=== PATIENT | female | born 1975 | race Caucasian/White ===

== ENCOUNTER 2017-06-18 22:11 | Observation (INO) | payer MEDICAID, OTHER ==
[~2017-06-18] VITALS: Ht 165.1 cm; Wt 75.0 kg
[2017-06-18 22:14] VITALS: BP 132/64; PULSE 96; RESP 16; TEMP 98.5; O2SAT 100
[2017-06-18] MEDS ORDERED: PROZ40CA PO (22:36)
[2017-06-18] MEDS ORDERED: BUPR150CR PO (22:36)
[2017-06-18] MEDS ORDERED: VIST50CA PO (22:36)
[2017-06-18] MEDS ORDERED: SODIUM CHLORIDE 0.9% FLUSH 10 ML FLUSH IVF PRN (23:00)
[2017-06-18] MEDS ORDERED: ASPIRIN 81 MG CHEW TAB PO ONE (23:00)
--- NOTE | 2017-06-18 23:15 | RADRPT ---
EXAM DATE/TIME: 06/18/2017 22:53 [place] COMPARISON: No previous studies available for comparison. INDICATIONS : Chest pain and shortness of breath. MEDICAL HISTORY : None. SURGICAL HISTORY : None. ENCOUNTER: Initial ACUITY: 2 days PAIN SCORE: 8/10 LOCATION: Bilateral chest FINDINGS: A single view of the chest demonstrates the lungs to be symmetrically aerated without evidence of mas s, infiltrate or effusion. The cardiomediastinal contours are unremarkable. Osseous structures are intact. CONCLUSION: No acute cardiopulmonary process. Dung Foster MD on June 18, 2017 at 23:14 Board Certified Radiologist. This report was verified electronically.
[2017-06-18 23:25] LABS: AUTOMATED NEUTROPHIL # 2.8 TH/MM3 (1.8-7.7); BASOPHIL % 0.6 % (0.0-2.0); EOSINOPHIL # 0.2 TH/MM3 (0-0.4); EOSINOPHIL % 2.9 % (0.0-4.0); HEMATOCRIT 33.7 % (35.0-46.0); HEMO FLAGS DIFF FINAL; LYMPH % 45.4 % (9.0-44.0); MEAN CELL VOLUME 89.4 FL (80.0-100.0); MEAN CORPUSCULAR HEMOGLOBIN 30.1 PG (27.0-34.0); MEAN CORPUSCULAR HGB CONC 33.6 % (32.0-36.0); MONO % 8.7 % (0.0-8.0); NEUT % 42.4 % (16.0-70.0); PLATELET COUNT 215 TH/MM3 (150-450); RED BLOOD COUNT 3.77 MIL/MM3 (4.00-5.30); RED CELL DISTRIBUTION WIDTH 13.1 % (11.6-17.2); WHITE BLOOD COUNT 6.6 TH/MM3 (4.0-11.0)
[2017-06-18 23:36] LABS: ALKALINE PHOSPHATASE 105 U/L (45-117); TOTAL BILIRUBIN ADULT 0.4 MG/DL (0.2-1.0)
[2017-06-18 23:40] LABS: ALT (GPT) 107 U/L (10-53); ANION GAP 8 MEQ/L (5-15); AST (GOT) 58 U/L (15-37); BICARBONATE 23.9 MEQ/L (21.0-32.0); BLOOD UREA NITROGEN 18 MG/DL (7-18); CHLORIDE 104 MEQ/L (98-107); GLOMERULAR FILTRATION RATE 65 ML/MIN (>89); POTASSIUM 3.9 MEQ/L (3.5-5.1); SODIUM (NA) 136 MEQ/L (136-145)
--- NOTE | 2017-06-18 23:42 | PD ---
HPI Chief Complaint: Chest Pain Time Seen by Provider: 22:39 Travel History International Travel<30 days: No Contact w/Intl Traveler<30days: No Traveled to known affect area: No History of Present Illness HPI This is a 41-year-old female who presents to the emergency department with chest pain. She says that for the past 2 days she's had intermittent left- sided chest pains under her left breast, associated with some tingling in her left arm, shortness of breath and nausea. She says that she has a history of 15 years of cocaine abuse as well as smoking and she is 6 months clean in a sober living house. Her father she says also had bypass surgery at 45. She had some sort of cardiac monitoring when she was that doesn't recall having a recent stress test otherwise. PFSH Past Medical History Anxiety: Yes Depression: Yes Tetanus Vaccination: > 5 Years ?: Not LMP: 06/18/17 : 1 Para: 1 Past Surgical History Other Surgery: Yes (cervical fusion) Family History Family Myocardial Infarction: Yes (father had 6 bypasses) Social History Alcohol Use: No Tobacco Use: No (vapes) Substance Use: No (sober 6 months) Allergies-Medications (Allergen,Severity, Reaction): Coded Allergies: No Known Allergies (Verified Allergy, Unknown, 06/18/17) Reported Meds & Prescriptions Reported Meds & Active Scripts Active Reported Vistaril (Hydroxyzine Pamoate) 50 Mg Cap 50 Mg PO TID Prozac (Fluoxetine HCl) 40 Mg Cap 40 Mg PO DAILY Wellbutrin SR 12 HR (Bupropion HCl) 150 Mg Tab 300 Mg PO DAILY Review of Systems Except as stated in HPI: all other systems reviewed are Neg Physical Exam Narrative GENERAL:Well appearing, no acute distress SKIN: Focused skin assessment warm and dry. HEAD: Atraumatic. Normocephalic. EYES: Pupils equal and round. No injection or drainage. ENT: Moist mucous membranes NECK: Trachea midline. CARDIOVASCULAR: Regular rate and rhythm. 3/6 systolic murmur noted over the left sternal border. RESPIRATORY: Clear to auscultation. Breath sounds equal bilaterally. GASTROINTESTINAL: Abdomen soft, non-tender, nondistended. MUSCULOSKELETAL: No obvious deformities. NEUROLOGICAL: Awake and alert. No obvious cranial nerve deficits. Moving all extremities. PSYCHIATRIC: Appropriate mood and affect; insight and judgment normal. Data Data Last Documented VS Vital Signs Date Time Temp Pulse Resp B/P (MAP) Pulse Ox O2 Delivery O2 Flow Rate FiO2 06/18/17 22:14 98.5 96 16 132/64 (86) 100 Room Air Orders Orders Electrocardiogram (06/18/17 22:50) Complete Blood Count With Diff (06/18/17 22:50) Comprehensive Metabolic Panel (06/18/17 22:50) Troponin I (06/18/17 22:50) Chest, Single Ap (06/18/17 22:50) Ecg Monitoring (06/18/17 22:50) Bilateral Bp Monitoring (06/18/17 22:50) Iv Access Insert/Monitor (06/18/17 22:50) Oximetry (06/18/17 22:50) Oxygen Administration (06/18/17 22:50) Aspirin Chew (Aspirin Chew) (06/18/17 23:00) Sodium Chloride 0.9% Flush (Ns Flush) (06/18/17 23:00) Ed Urine Pregnancytest Poc (06/18/17 22:50) Admit Order (Ed Use Only) (06/18/17 23:49) Labs Laboratory Tests Test 06/18/17 22:58 White Blood Count 6.6 TH/MM3 Red Blood Count 3.77 MIL/MM3 Hemoglobin 11.3 GM/DL Hematocrit 33.7 % Mean Corpuscular Volume 89.4 FL Mean Corpuscular Hemoglobin 30.1 PG Mean Corpuscular Hemoglobin Concent 33.6 % Red Cell Distribution Width 13.1 % Platelet Count 215 TH/MM3 Mean Platelet Volume 6.9 FL Neutrophils (%) (Auto) 42.4 % Lymphocytes (%) (Auto) 45.4 % Monocytes (%) (Auto) 8.7 % Eosinophils (%) (Auto) 2.9 % Basophils (%) (Auto) 0.6 % Neutrophils # (Auto) 2.8 TH/MM3 Lymphocytes # (Auto) 3.0 TH/MM3 Monocytes # (Auto) 0.6 TH/MM3 Eosinophils # (Auto) 0.2 TH/MM3 Basophils # (Auto) 0.0 TH/MM3 CBC Comment DIFF FINAL Differential Comment Blood Urea Nitrogen 18 MG/DL Creatinine 0.96 MG/DL Random Glucose 85 MG/DL Total Protein 6.7 GM/DL Albumin 3.4 GM/DL Calcium Level 7.8 MG/DL Alkaline Phosphatase 105 U/L Aspartate Amino Transf (AST/SGOT) 58 U/L Alanine Aminotransferase (ALT/SGPT) 107 U/L Total Bilirubin 0.4 MG/DL Sodium Level 136 MEQ/L Potassium Level 3.9 MEQ/L Chloride Level 104 MEQ/L Carbon Dioxide Level 23.9 MEQ/L Anion Gap 8 MEQ/L Estimat Glomerular Filtration Rate 65 ML/MIN Troponin I LESS THAN 0.02 NG/ML MDM Medical Decision Making Medical Screen Exam Complete: Yes Emergency Medical Condition: Yes Interpretation(s) Afebrile, mild tachycardia, normotensive Mild anemia Mild transaminitis Troponin is normal Chest x-ray reassuring Differential Diagnosis Acute coronary syndrome, cocaine chest pain, pericarditis, aortic dissection, panic attack Narrative Course This is a 41-year-old female who presents to the emergency department with chest discomfort this been going on for 2 days associated with some visceral symptoms including shortness of breath and nausea. She has a long-standing history of cocaine abuse and has a significant family history of heart disease with her father having had a bypass at the age of 45. The patient was placed on a monitor and an IV was established. EKG is nonischemic. Labs are obtained which were reassuring. Patient was given aspirin. I think she requires risk stratification in the chest pain center. She does have been auto bull systolic murmur on exam which she's never been told about. I doubt this is related to her chest pain. I advised her that she likely should follow with a home care physical therapist anyway given her father's significant history, and she could obtain an echo as an outpatient regarding this murmur. Diagnosis Primary Impression: Chest pain Qualified Codes: R07.9 - Chest pain, unspecified Admitting Information Admitting Physician Requests: Observation Adela Solorio MD Jun 18, 2017 23:42
[2017-06-18 23:58] VITALS: BP 106/59; PULSE 88; RESP 16; O2SAT 100
[2017-06-19] MEDS: SODIUM CHLORIDE 0.9% FLUSH 10 ML FLUSH IV FLUSH SCH ×2 (02:00→09:10)
[2017-06-19] MEDS ORDERED: SODIUM CHLORIDE 0.9% FLUSH 10 ML FLUSH IV FLUSH PRN (02:00)
[2017-06-19 02:22] VITALS: O2SAT 98
[2017-06-19 03:05] VITALS: PULSE 82
[2017-06-19 04:54] VITALS: BP 96/60; PULSE 85; RESP 18; TEMP 98; O2SAT 99
[2017-06-19 07:47] VITALS: BP 112/64; PULSE 79; RESP 16; TEMP 98.7; O2SAT 100
[2017-06-19 09:00] VITALS: PULSE 87
[2017-06-19] MEDS ORDERED: FAMOTIDINE 20 MG TAB PO ONE (09:15)
--- NOTE | 2017-06-19 09:15 | HHI.HP ---
HPI Primary Care Physician No Primary Care Physician Chief Complaint Chest pain History of Present Illness This is a 41-year-old female that presents to ED with a complaint of 2 days of intermittent left-sided chest discomfort lasting 15-20 minutes at a time. She is found nothing to bring on the discomfort. She times has been short of breath and nauseous. No diaphoresis. She describes as a sharp pain. Has not had this before. Denies recent illness. Denies fevers or chills. States she has had heartburn but it has not changed recently. She takes occasional Tums for that. States this does not feel like her heartburn. States that her left breast also is tender to push on it but does not feel the same discomfort that brought her to the ED. Not recall prior stress test. Review of Systems General: Patient denies fevers, chills recent, and recent travel HEENT: Patient denies headache, sore throat, difficulty swallowing. Cardiovascular: Has the chest discomfort as mentioned above. Denies sensation of heart beating rapidly or irregularly. No syncope. Denies diaphoresis.. Respiratory: She was short of breath. Denies of breath or inspirational chest discomfort. Denies coughing wheezing or hemoptysis. GI: Occasional nausea. Patient denies vomiting, diarrhea, abdominal pain, bloody stools. Musculoskeletal: Patient denies joint pain or edema. Denies calf pain or edema. Neurovascular: Patient denies numbness, tingling, weakness in extremities. Denies headache. Endocrine: Denies polyuria and polydipsia. Hematologic: Denies easy bruising. Skin: Denies rash or itching. Past Family Social History Allergies: Coded Allergies: No Known Allergies (Verified Allergy, Unknown, 06/18/17) Past Medical History Depression and anxiety. Past history of polysubstance abuse and tobacco abuse but states she has been sober and has not smoke cigarettes in about 6 months. Denies hypertension, hyperlipidemia, diabetes, and CAD. Past Surgical History Cervical fusion at age 29. Reported Medications Reported Meds & Active Scripts Active Reported Vistaril (Hydroxyzine Pamoate) 50 Mg Cap 50 Mg PO TID Prozac (Fluoxetine HCl) 40 Mg Cap 40 Mg PO DAILY Wellbutrin SR 12 HR (Bupropion HCl) 150 Mg Tab 300 Mg PO DAILY Active Ordered Medications Current Medications Medications (Trade) Dose Ordered Sig/Mitzi Route Start Time Stop Time Status Last Admin (NS Flush) 2 ml UNSCH PRN IV FLUSH 06/19/17 02:00 (NS Flush) 2 ml BID IV FLUSH 06/19/17 02:00 Family History States her father had a CABG at age 45. Social History Patient quit smoking about 5 months ago. Prior that she smoked between one half to one pack of cigarettes daily for 20 years. Denies alcohol. States she still abuse cocaine, opiates, marijuana but has been sober about 6 months. Physical Exam Vital Signs Vital Signs Date Time Temp Pulse Resp B/P (MAP) Pulse Ox O2 Delivery O2 Flow Rate FiO2 06/19/17 07:47 98.7 79 16 112/64 (80) 100 06/19/17 04:54 98.0 85 18 96/60 (72) 99 06/19/17 03:05 82 06/19/17 03:02 06/19/17 02:22 98 06/18/17 23:58 88 16 106/59 (75) 100 Room Air 06/18/17 22:14 98.5 96 16 132/64 (86) 100 Room Air Physical Exam GENERAL: This is a well-nourished, well-developed patient, in no apparent distress. Patient speaks in clear complete sentences. Patient is pleasant. 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 HEENT: Head is atraumatic and normocephalic. Neck is supple without lymphadenopathy and trachea is midline. No JVD or carotid bruits. CARDIOVASCULAR: Regular rate and rhythm without murmurs, gallops, or rubs. RESPIRATORY: Clear to auscultation. Breath sounds equal bilaterally. No wheezes , rales, or rhonchi. Left breast a tender but states it is not similar to the discomfort she has having. Also there is some anterior chest wall discomfort just left of the sternum but states that is not similar discomfort. States her discomfort felt deeper. No use of accessory muscles. GASTROINTESTINAL: Abdomen is nontender, nondistended. Abdomen soft. No obvious pulsatile mass or bruit. No CVA tenderness. Strong femoral pulses bilaterally. Normal bowel sounds in all quadrants. MUSCULOSKELETAL: Patient is moving upper and lower extremities freely. No calf tenderness or edema, no Homans sign. Strong pulses in upper and lower extremities. NEUROLOGICAL: Patient is alert and oriented. Cranial nerves 2-12 are grossly intact. No focal deficits and speech is clear. SKIN: No rash and turgor is normal. Laboratory Laboratory Tests Test 06/18/17 22:58 06/19/17 02:30 06/19/17 05:30 White Blood Count 6.6 Red Blood Count 3.77 Hemoglobin 11.3 Hematocrit 33.7 Mean Corpuscular Volume 89.4 Mean Corpuscular Hemoglobin 30.1 Mean Corpuscular Hemoglobin Concent 33.6 Red Cell Distribution Width 13.1 Platelet Count 215 Mean Platelet Volume 6.9 Neutrophils (%) (Auto) 42.4 Lymphocytes (%) (Auto) 45.4 Monocytes (%) (Auto) 8.7 Eosinophils (%) (Auto) 2.9 Basophils (%) (Auto) 0.6 Neutrophils # (Auto) 2.8 Lymphocytes # (Auto) 3.0 Monocytes # (Auto) 0.6 Eosinophils # (Auto) 0.2 Basophils # (Auto) 0.0 CBC Comment DIFF FINAL Differential Comment Blood Urea Nitrogen 18 Creatinine 0.96 Random Glucose 85 Total Protein 6.7 Albumin 3.4 Calcium Level 7.8 Alkaline Phosphatase 105 Aspartate Amino Transf (AST/SGOT) 58 Alanine Aminotransferase (ALT/SGPT) 107 Total Bilirubin 0.4 Sodium Level 136 Potassium Level 3.9 Chloride Level 104 Carbon Dioxide Level 23.9 Anion Gap 8 Estimat Glomerular Filtration Rate 65 Troponin I LESS THAN 0.02 LESS THAN 0.02 LESS THAN 0.02 Result Diagram: 06/18/17225706/18/172257 Imaging Last 48 hours Impressions Chest X-Ray 06/18/172249 Signed Impressions: Service Date/Time: Sunday, June 18, 2017 22:53 - CONCLUSION: No acute cardiopulmonary process. Dung Foster MD Course EKGs are sinus rhythm without significant ST segment depressions or elevations. Caprini VTE Risk Assessment Caprini VTE Risk Assessment: No/Low Risk (score <= 1) Caprini Risk Assessment Model Point Value = 1 Point Value = 2 Point Value = 3 Point Value = 5 Age 41-60 Minor surgery BMI > 25 kg/m2 Swollen legs Varicose veins or History of unexplained or recurrent spontaneous Oral contraceptives or hormone replacement Sepsis (< 1 month) Serious lung disease, including pneumonia (< 1 month) Abnormal pulmonary function Acute myocardial infarction Congestive heart failure (< 1 month) History of inflammatory bowel disease Medical patient at bed rest Age 61-74 Arthroscopic surgery Major open surgery (> 45 min) Laparoscopic surgery (> 45 min) Malignancy Confined to bed (> 72 hours) Immobilizing plaster cast Central venous access Age >= 75 History of VTE Family history of VTE Factor V Leiden Prothrombin [id number] Lupus anticoagulant Anticardiolipin antibodies Elevated serum homocysteine Heparin-induced thrombocytopenia Other congenital or acquired thrombophilia Stroke (< 1 month) Elective arthroplasty Hip, pelvis, or leg fracture Acute spinal cord injury (< 1 month) Prophylaxis Regimen Total Risk Factor Score Risk Level Prophylaxis Regimen 0-1 Low Early ambulation 2 Moderate Order ONE of the following: *Sequential Compression Device (SCD) *Heparin 5000 units SQ BID 3-4 Higher Order ONE of the following medications: *Heparin 5000 units SQ TID *Enoxaparin/Lovenox 40 mg SQ daily (WT < 150 kg, CrCl > 30 mL/min) *Enoxaparin/Lovenox 30 mg SQ daily (WT < 150 kg, CrCl > 10-29 mL/min) *Enoxaparin/Lovenox 30 mg SQ BID (WT < 150 kg, CrCl > 30 mL/min) AND/OR *Sequential Compression Device (SCD) 5 or more Highest Order ONE of the following medications: *Heparin 5000 units SQ TID (Preferred with Epidurals) *Enoxaparin/Lovenox 40 mg SQ daily (WT < 150 kg, CrCl > 30 mL/min) *Enoxaparin/Lovenox 30 mg SQ daily (WT < 150 kg, CrCl > 10-29 mL/min) *Enoxaparin/Lovenox 30 mg SQ BID (WT < 150 kg, CrCl > 30 mL/min) AND *Sequential Compression Device (SCD) Assessment and Plan Assessment and Plan * Chest pain: Patient has had serial cardiac enzymes and EKGs for ruling out purposes. She will be seen by Dr. Terrell of cardiology in the chest pain center and likely have a Yaw protocol ETT. She'll be discharged home if stress test is nonischemic. Patient should follow-up with outpatient primary care physician. * Depression/anxiety: Continue her medications. Patient is stable at this time. She is agreeable to this plan. Jose Antonio Wiley Jun 19, 2017 09:15
--- NOTE | 2017-06-19 09:54 | HHI.DCPOC ---
Discharge Care Plan Diagnosis: (1) Chest pain Goals to Promote Your Health * To prevent worsening of your condition and complications * To maintain your health at the optimal level Directions to Meet Your Goals Take your medications as prescribed Follow your dietary instruction Follow activity as directed Keep your appointments as scheduled Take your immunizations and boosters as scheduled If your symptoms worsen call your PCP, if no PCP go to Urgent Care Center or Emergency Room Smoking is Dangerous to Your Health. Avoid second hand smoke Call the 24-hour hour crisis hotline for domestic abuse at Jose Antonio Wiley Jun 19, 2017 09:54
--- NOTE | 2017-06-19 10:41 | EKG ---
Date Performed: 06/19/2017 Time Performed: 03:28:23 PTAGE: 41 years EKG: Sinus rhythm POSSIBLE RIGHT VENTRICULAR CONDUCTION DELAY BORDERLINE ECG PREVIOUS TRACING : 06/19/2017 00.00 Since previous tracing, no significant change noted DOCTOR: Wei Terrell Interpretating Date/Time 06/19/2017 10:41:38
--- NOTE | 2017-06-19 11:46 | TR ---
Date Performed: 06/19/2017 Time Performed: 09:28:04 DOCTOR: Wei Terrell DRUG LIST: CLINICAL HISTORY: REASON FOR TEST: Chest pain REASON FOR ENDING: OBSERVATION: CONCLUSION: SHARONDA PROTOCOL. NO CP. TEST STOPPED AFTER EXCEEDING GOAL HR SECONDARY TO SOB AND LEG FATIGUE.Maximum KP=349 % Max HR Achieved=86.0% Maximum EG=411/70 Total Exercise Time=9:01 COMMENTS: Conclusion: Normal treadmill exercise. No evidence of ischemia.
--- NOTE | 2017-06-19 13:48 | EKG ---
Date Performed: 06/19/2017 Time Performed: 00:00:31 PTAGE: 41 years EKG: Sinus rhythm INCOMPLETE RIGHT BUNDLE BRANCH BLOCK BORDERLINE ECG PREVIOUS TRACING : 06/18/2017 22.34 Since previous tracing, no significant change noted DOCTOR: Wei Terrell Interpretating Date/Time 06/19/2017 13:48:00
--- NOTE | 2017-06-19 13:50 | EKG ---
Date Performed: 06/18/2017 Time Performed: 22:34:01 PTAGE: 41 years EKG: INCOMPLETE RIGHT BUNDLE BRANCH BLOCK ABNORMAL RHYTHM ECG NO PREVIOUS TRACING DOCTOR: Wei Terrell Interpretating Date/Time 06/19/2017 13:48:58
--- NOTE | 2017-06-19 13:51 | EKG ---
Date Performed: 06/19/2017 Time Performed: 05:59:03 PTAGE: 41 years EKG: Sinus rhythm INCOMPLETE RIGHT BUNDLE BRANCH BLOCK BORDERLINE ECG PREVIOUS TRACING : 06/19/2017 03.28 Since previous tracing, no significant change noted DOCTOR: Wei Terrell Interpretating Date/Time 06/19/2017 13:49:58
== END 2017-06-19 12:38 | disposition home or self-care (01) ==
LOC: NEPC 22:11 → NEDA 23:51 → NEPFCDU 06-19 02:46
DX: R07.9 Chest pain, unspecified (principal); R01.1 Cardiac murmur, unspecified; R94.31 Abnormal electrocardiogram [ECG] [EKG]; F32.9 Major depressive disorder, single episode, unspecified; F41.9 Anxiety disorder, unspecified; Z87.891 Personal history of nicotine dependence; Z82.49 Family history of ischemic heart disease and other diseases of the circulatory system
CPT/HCPCS: 71010; 80053; 84484; 84703; 85025; 93005; 93017; 99285; G0378